=== PATIENT | male | born 1955 | race Caucasian/White ===

== ENCOUNTER → 2021-10-08 11:23 | Outpatient (CLI) | payer MEDICARE, OTHER, SELFPAY ==
[2021-10-08 12:06] LABS: COVID19 -Nasal RAPID Negative (Negative)
== END ==
PROVIDERS: PCP Family Medicine; Visit Provider Surgery
DX: Z01.812 Encounter for preprocedural laboratory examination (principal); Z20.822 Contact with and (suspected) exposure to COVID-19
CPT/HCPCS: 87635; C9803

== ENCOUNTER 2021-10-09 07:15 | Day surgery (SDC) | payer MEDICARE, OTHER, SELFPAY ==
[2021-10-09] VITALS (7 sets, daily range): BP systolic 90–136; BP diastolic 37–88; PULSE 46–72; RESP 10–17; TEMP 36.2–36.5; O2SAT 95–98; BMI 27.3
--- NOTE | 2021-10-09 | PATH_ITS ---
[facility] Accession Number: [id number] . 01 Material submitted: . PART A: duodenum - DUODENAL POLYP PART B: gastrointestinal site - GASTRIC POLYP PART C: esophagus, E-G Junction - GE JUNCTION BIOPSY PART D: colon - ASCENDING COLON POLYP PART E: colon - DESCENDING COLON POLYP PART F: rectum - RECTAL POLYP . 02 Diagnosis: A. 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 Negative for active inflammation, features of sprue, dysplasia, and malignancy. . B. Stomach, Polyp, Biopsy: Body-type mucosa with a few dilated glands consistent with fundic gland polyp. No evidence of Helicobacter on H/E stain. Negative for intestinal metaplasia. Negative for dysplasia and malignancy. . C. Gastroesophageal Junction, Biopsy: Squamocolumnar junctional mucosa with specialized intestinal metaplasia, consistent with Willis's esophagus. Negative for dysplasia and malignancy. . D. Ascending Colon, Polyp, Biopsy: Sessile serrated adenoma. . E. Descending Colon, Polyp, Biopsy: Hyperplastic polyp. . F. Rectum, Polyp, Biopsy: Hyperplastic polyp. [facility] 10/15/2021 1609 Local . 02 Electronically signed: . Quin Nascimento MD, Pathologist NPI- [id number] . 01 Gross description: . Part A: DUODENAL POLYP: Received in formalin are 2 fragment(s) of avila, soft tissue measuring 0.3 x 0.2 x 0.2 cm to 0.1 x 0.1 x 0.1 cm submitted entirely in 1 cassette(s) Part B: GASTRIC POLYP: Received in formalin is 1 fragment(s) of avila, soft tissue measuring 0.3 x 0.2 x 0.2 cm submitted entirely in 1 cassette(s) Part C: GE JUNCTION BIOPSY: Received in formalin are 4 fragment(s) of avila, soft tissue measuring 0.4 x 0.2 x 0.2 cm to 0.2 x 0.2 x 0.2 cm submitted entirely in 1 cassette(s) Part D: ASCENDING COLON POLYP: Received in formalin is 1 fragment(s) of avila, soft tissue measuring 0.9 x 0.5 x 0.3 cm submitted entirely in 1 cassette(s) Part E: DESCENDING COLON POLYP: Received in formalin is 1 fragment(s) of avila, soft tissue measuring 0.3 x 0.3 x 0.2 cm submitted entirely in 1 cassette(s) Part F: RECTAL POLYP: Received in formalin is 1 fragment(s) of avila, soft tissue measuring 0.2 x 0.2 x 0.1 cm submitted entirely in 1 cassette(s) /[facility] 10/10/2021 1104 Local . 02 Microscopic: . A. A PAS stain is performed to evaluate cells of interest, and is negative. The control stain shows appropriate reactivity. . Additional levels were examined. . 02 Pathologist provided ICD-10: K22.70, D12.2 . 02 CPT . 663323, 223358, 733557, [id number], [id number], [id number], 612348 Specimen Comment: A courtesy copy of this report has been sent to [phone] Performed at: 01 [facility] [address] [id number] MD Luis Manuel Rendon MD Phone: [phone] Performed at: 02 [facility] [address] [place] [id number] MD Quin Nascimento MD Phone: [phone]
--- NOTE | 2021-10-09 07:45 | PM.PREOP ---
Pre-operative Note COVID-19 COVID-19 status: Negative Result date/Date tested (Pos, Neg/Pending): 10/08/21 Interval Note History & Physical reviewed/Exam performed by Physician: Yes Changes to H&P: No ASA Class (for procedural sedation): II
[2021-10-09] MEDS: LACTATED RINGERS 1,000 ML 42 ML IV (08:03)
[2021-10-09] MEDS: LIDOCAINE 4% SOLN 50 ML 20 ML TOP (08:18)
--- NOTE | 2021-10-09 08:28 | SUR.PREOP ---
0828-patient returned from [facility] area. delay in procedure due to MD unavailable.
[2021-10-09] MEDS: fentaNYL 250 MCG/5 ML INJ IV (09:13)
[2021-10-09] MEDS: MIDAZOLAM 5 MG/5 ML VIAL IV (09:13)
--- NOTE | 2021-10-09 10:06 | P.OP.EGD&C_ITS ---
Operative Date/Time/Diagnoses Date of procedure: 10/09/21 Time of procedure: 10:06 Pre-op diagnosis: 1. Willis Esophagus 2. colon cancer screening Post-op diagnosis: same Procedure Notes Procedure in detail: Procedure in detail: A timeout was performed. Bite blocked was placed. Patient was positioned in a left lateral decubitus position. Sedation was administered with Versed and fentanyl. Once the patient was sedated the endoscope was inserted through the bite block and passed through the esophagus and stomach and into the duodenum. There was a small duodenal polyp removed with forceps. The scope was withdrawn into the duodenal bulb which was normal. The scope was withdrawn to the stomach the antrum was normal. There was a small polyp in the body of the stomach which was removed with forceps. The scope was retroflexed for and a 4 cm hiatal hernia was noted. The scope was withdrawn into the esophagus and short segments of Willis's esophagus were noted. These were estimated to less than 2 cm long. Four-quadrant biopsies were taken at 2 different levels within the patches of salmon-colored mucosa. The rest of the esophagus was normal. Findings: Small duodenal polyp, gastric polyp, small 4 cm hiatal hernia and short segments of salmon-colored mucosa in the distal esophagus Next we repositioned the patient for a colonoscopy. A digital rectal exam was performed and was normal. The colonoscope was inserted and advanced to the cecum. The appendiceal orifice was identified and photographed. The scope was slowly withdrawn over greater than 6 minutes. A 5 mm sessile polyp in the ascending colon was removed with hot snare. A small 3 mm polyp was removed in the descending colon with forceps and another small 4 mm polyp was removed in the rectum with forceps. The scope was retroflexed in the rectum and no abnormalities were noted. Rare scattered diverticula were noted throughout the colon. Findings: Polyps in the ascending colon, descending colon and rectum, rare sca ttered diverticula greatest in sigmoid colon EBL: 5 mL Scope withdrawal time: 22 Sedation minutes: 51 Post-procedure Recommendations: Will call with biopsy results Disposition: PACU
== END 2021-10-09 10:55 | disposition home or self-care (01) ==
PROVIDERS: PCP Family Medicine; Referring Provider Surgery; Visit Provider Surgery
PROC: 0DJ08ZZ Inspection of Upper Intestinal Tract, Via Natural or Artificial Opening Endoscopic (ICD-10-PCS; CPT 43235; principal; 2021-10-09 08:30)
PROC: 0DJD8ZZ Inspection of Lower Intestinal Tract, Via Natural or Artificial Opening Endoscopic (ICD-10-PCS; CPT 45378; 2021-10-09 08:30)
DX: Z12.11 Encounter for screening for malignant neoplasm of colon (principal); Z86.010 Personal history of colon polyps; K22.70 Barrett's esophagus without dysplasia; K44.9 Diaphragmatic hernia without obstruction or gangrene; K31.7 Polyp of stomach and duodenum; K57.30 Diverticulosis of large intestine without perforation or abscess without bleeding; D12.2 Benign neoplasm of ascending colon; K62.1 Rectal polyp
CPT/HCPCS: 45385; 45380; 43239; 99152; 99153; J2250; J3010